=== PATIENT | male | born 1950 | race Caucasian/White ===

== ENCOUNTER 2022-10-06 13:49 | Emergency (ER) | payer MEDICARE, OTHER ==
[2022-10-06] MEDS ORDERED: Acetaminophen 500 MG TAB ONE (14:30)
[2022-10-06] MEDS ORDERED: Boostrix 0.5 ML (Tdap) VIAL (>/=7 yrs of age) ONE (14:30)
== END 2022-10-06 15:37 | disposition home or self-care (01) ==
LOC: CSHERS 13:49
DX: S61.303A Unspecified open wound of left middle finger with damage to nail, initial encounter (principal); Z23 Encounter for immunization; I25.10 Atherosclerotic heart disease of native coronary artery without angina pectoris; I10 Essential (primary) hypertension; W26.0XXA Contact with knife, initial encounter
CPT/HCPCS: 90471; 90715